=== PATIENT | female | born 1985 | race Caucasian/White ===

== ENCOUNTER 2023-06-07 07:38 | Inpatient (IN) | payer OTHER ==
[~2023-06-07] VITALS: Ht 157.5 cm; Wt 65.3 kg
[~2023-06-07 07:38] MED LIST: ROPIVACAINE 0.2%/NS PREMIX 200 ML EPI ONE
[2023-06-07 08:00] VITALS: BP 95/59; PULSE 96; RESP 18; TEMP 98.1; O2SAT 98
[2023-06-07 08:32] LABS: BASOPHILS % (AUTO) 0.7 % (0.0-2.0); EOSINOPHILS % (AUTO) 0.6 % (0.0-4.0); HEMATOCRIT 30.8 % (36-48); HEMOGLOBIN 9.9 g/dL (12.0-16.0); LYMPHOCYTES # (AUTO) 1.5 K/uL (2.5-16.5); MEAN CORPUSCULAR HEMOGLOBIN 25 pg (27-31); MEAN CORPUSCULAR HGB CONC 32 g/dL (33-37); MEAN CORPUSCULAR VOLUME 77.5 fL (80-94); MONOCYTES # (AUTO) 0.3 K/uL (0.8-1.0); MONOCYTES % (AUTO) 5.3 % (1.7-9.3); NEUTROPHILS # (AUTO) 4.2 K/uL (1.8-7.7); NEUTROPHILS % (AUTO) 68.4 % (42.2-75.2); PLATELET COUNT (AUTO) 180 K/uL (140-450); RED BLOOD CELL COUNT(AUTO) 3.98 MIL/uL (4.20-5.40); RED CELL DISTRIBUTION WIDTH 15.4 % (11.6-13.7); WHITE BLOOD COUNT (AUTO) 6.1 K/uL (4.8-10.8)
[2023-06-07 08:37] LABS: APPEARANCE,URINE CLEAR (CLEAR); BILIRUBIN,URINE NEGATIVE (NEGATIVE); BLOOD, URINE NEGATIVE (NEGATIVE); COLOR,URINE YELLOW (YELLOW); LEUKOCYTE ESTERASE ,URINE TRACE (NEGATIVE); NITRITE, URINE NEGATIVE (NEGATIVE); PROTEIN,URINE NEGATIVE (NEGATIVE); UGLUCOSE NEGATIVE (NEGATIVE); UROBILINOGEN,URINE 0.2 EU/dL (0.2 - 1)
[2023-06-07] MEDS: LACTATED RINGERS 1,000 ML IV SCH (08:38)
[2023-06-07 08:53] LABS: ALBUMIN 2.3 g/dL (3.4-5.0); ANION GAP 12.8 (8-16); CARBON DIOXIDE 23.7 mmol/L (21-32); CREATININE 0.5 mg/dL (0.6-1.3); POTASSIUM 3.5 mmol/L (3.5-5.1); TOTAL BILIRUBIN 0.5 mg/dL (0.0-1.0)
[2023-06-07] MEDS: CITRIC ACID/SODIUM CITRATE 30 ML UDC PO SCH (08:54)
[2023-06-07] MEDS ORDERED: MORPHINE SULFATE 10 MG/ML VIAL ONE (09:10)
[2023-06-07] MEDS ORDERED: DEXAMETHASONE 4 MG/ML VIAL ONE (09:10)
[2023-06-07] MEDS ORDERED: KETOROLAC 30 MG/ML VIAL ONE (09:10)
[2023-06-07] MEDS ORDERED: METOCLOPRAMIDE 10 MG/2 ML INJ VIAL ONE (09:10)
[2023-06-07] MEDS: ceFAZolin 2,000 MG VIAL ONE (09:10)
[2023-06-07 09:24] LABS: INR 0.93 (0.8-1.2); PARTIAL THROMBOPLASTIN TIME 26.9 secs (22-35.6); PROTHROMBIN TIME 9.8 secs (10.8-13.4)
[2023-06-07] MEDS ORDERED: ONDANSETRON 4 MG/2 ML VIAL IVP PRN (10:05)
[2023-06-07] MEDS ORDERED: diphenhydrAMINE 50 MG/ML VIAL IVP PRN (10:05)
[2023-06-07] MEDS ORDERED: KETOROLAC 60 MG/2 ML VIAL IM PRN (10:05)
[2023-06-07] MEDS ORDERED: HYDROmorphone 1 MG/ML AMP IVP PRN (10:05)
[2023-06-07] MEDS ORDERED: NALOXONE 0.4 MG/ML VIAL IVP PRN ×3 (10:05)
[2023-06-07] MEDS ORDERED: OXYTOCIN/0.9 % SODIUM CHLORIDE 500 ML IV ONE (10:08)
[2023-06-07] MEDS ORDERED: MEASLES, MUMPS, AND RUBELLA 1 VIAL SQVAC PRN (10:45)
[2023-06-07] MEDS ORDERED: SIMETHICONE 80 MG TAB.CHEW PO PRN (10:50)
[2023-06-07] MEDS ORDERED: oxyCODONE/APAP 5/325 MG 1 TAB TAB PO PRN ×2 (10:50→15:50)
[2023-06-07] MEDS ORDERED: METHYLERGONOVINE 0.2 MG/ML AMP IM PRN ×2 (10:50→15:50)
[2023-06-07] MEDS ORDERED: bisacodyL 5 MG TABEC PO PRN (10:50)
[2023-06-07] MEDS ORDERED: KETOROLAC 30 MG/ML VIAL IVP PRN ×2 (11:15→11:25)
[2023-06-07] MEDS: OXYTOCIN/0.9 % SODIUM CHLORIDE 500 ML IV SCH (13:25)
[2023-06-07] MEDS ORDERED: ROPIVACAINE 0.2%/NS PREMIX 100 ML EPI SCH (14:05)
[2023-06-07] MEDS ORDERED: LACTATED RINGERS 1,000 ML IV SCH (14:45)
[2023-06-07] MEDS ORDERED: MEASLES, MUMPS, AND RUBELLA 1 VIAL SQVAC ONE (15:50)
[2023-06-07] MEDS ORDERED: PREN1COM6 PO (18:08)
[2023-06-07] MEDS ORDERED: ROPIVACAINE 0.2%/NS PREMIX 200 ML EPI ONE (18:25)
[2023-06-08] MEDS: KETOROLAC 30 MG/ML VIAL IVP PRN (05:50)
[2023-06-08 06:03] LABS: BASOPHILS % (AUTO) 0.3 % (0.0-2.0); EOSINOPHILS % (AUTO) 0.1 % (0.0-4.0); HEMATOCRIT 25.9 % (36-48); HEMOGLOBIN 8.5 g/dL (12.0-16.0); LYMPHOCYTES # (AUTO) 1.3 K/uL (2.5-16.5); LYMPHOCYTES % (AUTO) 9.5 % (20.5-51.1); MEAN CORPUSCULAR HEMOGLOBIN 25 pg (27-31); MEAN CORPUSCULAR HGB CONC 33 g/dL (33-37); MEAN CORPUSCULAR VOLUME 76.4 fL (80-94); MONOCYTES # (AUTO) 0.7 K/uL (0.8-1.0); MONOCYTES % (AUTO) 4.9 % (1.7-9.3); NEUTROPHILS # (AUTO) 12.1 K/uL (1.8-7.7); NEUTROPHILS % (AUTO) 85.2 % (42.2-75.2); PLATELET COUNT (AUTO) 181 K/uL (140-450); RED BLOOD CELL COUNT(AUTO) 3.39 MIL/uL (4.20-5.40); RED CELL DISTRIBUTION WIDTH 15.5 % (11.6-13.7); WHITE BLOOD COUNT (AUTO) 14.2 K/uL (4.8-10.8)
[2023-06-08] MEDS: bisacodyL 10 MG SUPP RC SCH (08:57)
[2023-06-08] MEDS: SIMETHICONE 80 MG TAB.CHEW PO PRN (09:01)
[2023-06-08] MEDS: oxyCODONE/APAP 5/325 MG 1 TAB TAB PO PRN (20:00)
[2023-06-08] MEDS ORDERED: CAMERA MC ONE (20:32)
[2023-06-09] MEDS: IBUPROFEN 600 MG TAB PO PRN (02:18)
== END 2023-06-09 14:10 | disposition home or self-care (01) | DRG 540 ==
LOC: OBSVTOIN 07:38 → MLD 07:38 → MFCC 10:21
PROVIDERS: ADMIT Obstetrics & Gynecology; ATTEND Obstetrics & Gynecology
PROC: 10D00Z1 Extraction of Products of Conception, Low, Open Approach (ICD-10-PCS; principal; 2023-06-07 09:00)
DX: O99.013 Anemia complicating pregnancy, third trimester (principal); R71.0 Precipitous drop in hematocrit; O34.211 Maternal care for low transverse scar from previous cesarean delivery; Z37.0 Single live birth; Z3A.39 39 weeks gestation of pregnancy
CPT/HCPCS: 36415; 80053; 81003; 85025; 85610; 85730; 86592; 86886; 86900; 86901; 87081; J1100; J1885; J2270; J2590; J2765; J7120